=== PATIENT | male | born 1965 | race Caucasian/White ===

== ENCOUNTER 2017-08-25 16:59 | Emergency (ER) | payer MEDICAID ==
[2017-08-25] MEDS: IBUPROFEN 600 MG TAB PO (19:39)
== END 2017-08-25 20:04 | disposition home or self-care (01) ==
LOC: FTE 16:59
DX: S46.811A Strain of other muscles, fascia and tendons at shoulder and upper arm level, right arm, initial encounter (principal); F17.210 Nicotine dependence, cigarettes, uncomplicated; X58.XXXA Exposure to other specified factors, initial encounter; Y92.9 Unspecified place or not applicable
CPT/HCPCS: 99283; Z7502

== ENCOUNTER 2017-10-21 17:47 | Emergency (ER) | payer MEDICAID ==
[2017-10-21] MEDS: IBUPROFEN 600 MG TAB PO (20:45)
== END 2017-10-21 21:50 | disposition home or self-care (01) ==
LOC: FTE 17:47
DX: M25.511 Pain in right shoulder (principal); Z87.891 Personal history of nicotine dependence
CPT/HCPCS: 73030; 73030-RT; 99283-25

== ENCOUNTER 2017-11-06 13:33 | Emergency (ER) | payer MEDICAID | END 2017-11-06 15:35 | disposition home or self-care (01) | LOC: FTE 13:33 | DX: R09.89 Other specified symptoms and signs involving the circulatory and respiratory systems (principal); F17.210 Nicotine dependence, cigarettes, uncomplicated | CPT/HCPCS: 70490; 99284-25 ==